=== PATIENT | male | born 1975 | race African-American/Black ===

== ENCOUNTER 2025-07-09 22:31 | Emergency (ER) | payer OTHER, SELFPAY ==
--- NOTE | ~2025-07-09 | XR_ITS ---
CLINICAL HISTORY: Swelling, pain 3 view right ankle Comparison: None provided Findings: Fracture fragments distal to medial malleolus appears old/chronic. Mild osteoarthritis is greater than expected for age and may reflect posttraumatic osteoarthritis. Small effusion with soft tissue swelling noted. No acute displaced fracture or dislocation of the right ankle. No retained metallic foreign body. IMPRESSION: 1. No acute fracture or dislocation of the right. 2. Chronic appearing deformity of the old fracture fragment distal to medial malleolus. This document has been electronically signed by: Igor Fox MD on 07/09/2025 23:49:44
--- NOTE | ~2025-07-09 | XR_ITS ---
CLINICAL HISTORY: Swellling, pain 3 view left foot Comparison: None provided Findings: Old fracture fragments as dorsal aspect of the head of the 1st metatarsal and indeterminate-likely old fracture of the head of the 5th metatarsal. 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 Early findings of gutter crystal deposition also considered with mild subluxation. Remodeling from chronic or prior inflammatory arthropathy also considered. Additional osteoarthritis includes partially imaged midfoot. No acute displaced fracture or dislocation. No retained metallic foreign body. IMPRESSION: 1. Remodeling with chronic appearing deformities of the 1st and 5th metatarsal heads. 2. Joint space narrowing with osteoarthritis mild subluxation of the 1st metatarsophalangeal joint. Underlying crystalline deposition or inflammatory arthropathy also considered. This document has been electronically signed by: Igor Fox MD on 07/09/2025 23:38:13
[2025-07-09 22:39] VITALS: BP 149/83; PULSE 70; RESP 18; TEMP 36.7; O2SAT 100; BMI 30.4
[2025-07-10 00:11] VITALS: BP 124/69; PULSE 68; TEMP 36.8; O2SAT 100
--- NOTE | 2025-07-10 00:36 | ED.LOWEXIN ---
HPI - Extremity Injury (Lower) General Chief Complaint: Extremity Injury, Lower Stated Complaint: B/L leg pain s/p fall Time Seen by Provider: 07/09/25 23:23 Source: patient Mode of arrival: wheelchair Limitations: no limitations History of Present Illness ED Provider: Dr. Lorena De Jesus HPI Narrative: Previously healthy 49-year-old male presenting with bilateral ankle and foot pain after an injury that occurred at work today. 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 The object struck him in the back of his ankle, tossing him to the ground and then rolled over both of his feet. No other injuries. Did not hit his head or lose consciousness. Denies knee pain. Pain is in his bilateral ankles and the tops of his feet, left greater than right. Had been feeling well prior to the injury. Denies medical history. Denies recent illness. No numbness/tingling/weakness of the toes. Had to have a friend help him up off the ground. He was able to bear weight but with pain. He was having a difficult time ambulating and had to use wheelchair to get into the hospital. Related Data Previous Rx's ?Medication ?Instructions ?Recorded hydrocodone 5 mg-acetaminophen 325 1 tab PO Q6H PRN severe pain 07/10/25 mg tablet (scale score 7-10) #10 tabs ibuprofen 600 mg tablet 600 mg PO Q8H PRN fever or pain 07/10/25 #30 tabs Allergies Allergy/AdvReac Type Severity Reaction Status Date / Time No Known Allergies Allergy Verified 07/09/25 22:44 Review of Systems Review of Systems: As per HPI, full review of systems performed and negative but for the above mentioned pertinent positives and negatives. [facility] Social History Social History Advance Directives: No Advance Directives Information Provided: No Do you have a plan to hurt others: No Plan Physical Exam Exam: Exam: GENERAL: Uncomfortable-Appearing, conversant, mild distress due to pain. SKIN: Normal skin color for ethnicity, warm, dry, superficial abrasion overlying the posterior distal tibia/ankle, no rashes noted. HEENT: Normocephalic, atraumatic, no stridor, airway patent, no raccoon's eyes, no Lala sign, dentition intact, EOMI. NECK: Soft, supple, full ROM, midline structures nontender, no step-offs, no deformities, no lymphadenopathy. CHEST: Heart regular rate and rhythm, no murmurs, symmetric chest rise and fall, no seatbelt sign, crepitus. PULMONARY: Clear to auscultation bilaterally, no labored breathing, no wheezes/rhales/rhonchi. ABDOMINAL: Soft, nondistended, nontender, positive bowel sounds in all quadrants. : Deferred. MUSCULOSKELETAL: Normal tone, limited range of motion in the bilateral ankles secondary to pain, tenderness overlying the forefoot on the left foot with point tenderness at the 1st MTP joint, mild erythema and joint effusion, no obvious injury or deformity, contusions overlying the both feet and ankles. NEURO: Alert and oriented x3, CN II through XII intact, equal strength and sensation bilateral upper and lower extremities, no focal neurologic deficits. PSYCHIATRIC: Anxious affect, fluid speech, good eye contact and appropriate demeanor. Vital Signs: Vital Signs: Last Vital Signs Temp 98.3 F 07/10/25 01:17 Pulse 68 07/10/25 01:17 Resp 18 07/10/25 01:17 BP 124/69 07/10/25 01:17 Pulse Ox 100 07/10/25 01:17 O2 Del Method Room Air 07/10/25 01:17 BMI result Body Mass Index 30.4 Medications Administered Discontinued Medications Generic Name Dose Route Start Last Admin Trade Name Freq PRN Reason Stop Dose Admin Colchicine 1.2 mg 07/10/25 00:30 07/10/25 00:59 Colchicine 0.6 Mg Tablet PO 07/10/25 00:31 1.2 mg ONCE ONE Administration Oxycodone HCl 5 mg 07/10/25 00:30 07/10/25 00:51 Oxycodone Hcl Immed Release 5 Mg Tablet PO 07/10/25 00:31 5 mg ONCE ONE Administration Medical Decision Making Medical Decision Making [facility] Narrative: Patient presents today with musculoskeletal injury. Differential diagnosis includes fracture, soft tissue contusion, ligamentous injury, tendon injury, infection, laceration, among others. Patient is neurovascularly intact upon arrival to the emergency department. Based on physical exam, appropriate imaging was ordered. X-rays show some bony abnormalities in the foot on the left and what could potentially be gout. He does have point tenderness at the 1st MTP joint on the left. We will treat him with colchicine, pain control for his bony injuries with hydrocodone. Discharged in a boot and walking boot, crutches. Encouraged follow-up with orthopedic surgery. Patient understands and agrees with plan for discharge. Discharged home in stable condition. Differential Diagnosis Differential Diagnoses: The differential diagnosis associated with the presentation includes (As above) Admission/Observation Consideration of admission/observation: Escalation of care including admission/observation considered Radiology Impression Discussion of test interpretation with radiology: I have reviewed the radiologist's reading. Independent Historian Clinical information obtained from an independent historian. History obtained from or confirmed by: Friend Prescription Management I considered prescription management with: Pain Medication Discharge Plan Discharge Clinical Impression: Encounter for assessment of work-related causation of injury, Contusion of left foot, initial encounter, Abrasion, left ankle, initial encounter, Gouty arthritis of left great toe Contusion of ankle, right Qualifiers: Encounter type: initial encounter Qualified Code(s): S90.01XA - Contusion of right ankle, initial encounter Patient Disposition: Home, Self-Care Instructions: Gout (ED), Contusion in Adults (ED) Additional Instructions: Follow-up with orthopedic surgery regarding your left foot injury. Take ibuprofen as needed for pain. You may also use oxycodone for breakthrough pain. Return to the emergency department for any new or worsening symptoms. Use your walking boot as needed while moving around. Try not to bear weight on your foot until you are seen by the orthopedic surgeon. Use crutches. Prescriptions: New ibuprofen 600 mg tablet 600 mg PO Q8H PRN (Reason: fever or pain) Qty: 30 0RF hydrocodone-acetaminophen 5-325 mg tablet 1 tab PO Q6H PRN (Reason: severe pain (scale score 7-10)) Qty: 10 0RF Rx Instructions: Partial Fill upon patient request. Referrals: [facility] [Provider Group, Orthopedics] Clinical Impression: Contusion of left foot, initial encounter Interventions: ED Discharge Assessment Last Done: 07/10/25 01:17 Discharge Date/Time: 07/10/25 01:17 Print Language: Mongolian
[2025-07-10] MEDS: oxyCODONE HCl Immed Release 5 MG TABLET PO (00:51)
[2025-07-10 01:17] VITALS: BP 124/69; PULSE 68; RESP 18; TEMP 36.8; O2SAT 100
== END 2025-07-10 01:17 | disposition home or self-care (01) ==
PROVIDERS: Emergency Provider Emergency Medicine
DX: S90.512A Abrasion, left ankle, initial encounter (principal); S90.01XA Contusion of right ankle, initial encounter; M25.572 Pain in left ankle and joints of left foot; M25.571 Pain in right ankle and joints of right foot; M10.072 Idiopathic gout, left ankle and foot; X50.0XXA Overexertion from strenuous movement or load, initial encounter; X50.1XXA Overexertion from prolonged static or awkward postures, initial encounter; Y93.9 Activity, unspecified; Y92.9 Unspecified place or not applicable; Y99.0 Civilian activity done for income or pay
CPT/HCPCS: 73610; 73630; 99283; 99284

== ENCOUNTER → 2025-07-09 22:57 | Outpatient (BNV) | payer OTHER, SELFPAY | PROVIDERS: Emergency Provider Emergency Medicine; Visit Provider Radiology Neuroradiology | DX: R22.43 Localized swelling, mass and lump, lower limb, bilateral (principal); M25.571 Pain in right ankle and joints of right foot; M25.572 Pain in left ankle and joints of left foot; M19.072 Primary osteoarthritis, left ankle and foot; M21.6X2 Other acquired deformities of left foot | CPT/HCPCS: 73610; 73630 ==